=== PATIENT | male | born 1960 | race Caucasian/White ===

== ENCOUNTER 2019-04-16 10:31 | Outpatient (CLI) | payer OTHER ==
--- NOTE | 2019-04-16 12:22 | CT ---
CT ABDOMEN AND PELVIS WITH IV CONTRAST: INDICATIONS: Abdominal pain. Right lower quadrant pain. TECHNIQUE: Oral contrast was administered. Multiplanar reconstruction. FINDINGS: The lung bases are clear. The liver, spleen and pancreas are unremarkable. The adrenal glands are normal. Review of the kidneys show symmetric function. No hydronephrosis. There is a 4 mm nonobstructing calc ulus in the upper collecting structures of the right kidney. There is a tiny subcentimeter cystic les ion along the anterior cortex of the right kidney and another tiny low density cortical lesion at the posterior right renal cortex, too small to characterize. The ureters are of normal caliber. The urin carly bladder is mildly distended and unremarkable. Small bowel loops appear normal. There is evidence of mural thickening involving the upper right colon, transverse colon and left colo n. However the colon is nondistended which inhibits accurate colon wall evaluation. Recommend clinica l correlation regarding clinical findings of colitis. There is marked change in caliber in the mid as cending colon. Consider further evaluation with colonoscopy. Aorta of normal caliber. No mass, adenopathy or free fluid. Prostate size upper normal. IMPRESSION: Evidence of diffuse mural thickening of the colon, however, the colon is nondistended, which inhibits adequate evaluation. There is abrupt caliber change in the mid ascending colon. Consider colitis and recommend evaluation with elective colonoscopy. POS: [facility]
== END 2019-04-16 10:32 | disposition home or self-care (01) ==
LOC: SCSCT 10:31
PROVIDERS: ATTEND Nurse Practitioner Family
DX: R10.31 Right lower quadrant pain (principal)
CPT/HCPCS: 74177

== ENCOUNTER 2020-09-20 15:26 | Outpatient (CLI) | payer OTHER ==
[2020-09-21 04:20] LABS: SARS-CoV-2 PCR by NAA Not Detected (NotDetected)
== END 2020-09-20 15:27 | disposition home or self-care (01) ==
LOC: LABBT 15:26
PROVIDERS: ATTEND Surgery
DX: Z01.818 Encounter for other preprocedural examination (principal); Z20.822 Contact with and (suspected) exposure to COVID-19
CPT/HCPCS: 87635; 93005; 93010; U0003; U0005

== ENCOUNTER 2020-09-23 09:01 | Day surgery (SDC) | payer OTHER ==
[2020-09-22 09:31] VITALS: BMI 30.1
[2020-09-23] MEDS ORDERED: Midazolam HCl 2 mg/2 ml Vial ONE (09:54)
[2020-09-23] MEDS ORDERED: Bupivacaine PF 0.5% 30 ML VIAL ONE (10:18)
[2020-09-23] MEDS ORDERED: Lidocaine 1% w/Epinephrine 1:100K 20 ML VIAL ONE (10:18)
[2020-09-23] MEDS ORDERED: Fentanyl 100 MCG/2 ML VIAL ONE ×2 (10:24→12:18)
[2020-09-23] MEDS ORDERED: Famotidine/PF 20 mg/2ml Vial ONE (10:24)
[2020-09-23] MEDS ORDERED: PROPOFOL 200 MG/20 ML VIAL ONE (10:41)
[2020-09-23] MEDS ORDERED: Rocuronium Bromide 10 MG/ML (10ML VIAL) ONE (10:41)
[2020-09-23] MEDS ORDERED: Lidocaine 1% PF 5 ML VIAL ONE (10:41)
[2020-09-23] MEDS ORDERED: Glycopyrrolate 0.2 MG/ML 5 ML SYRINGE ONE (10:41)
[2020-09-23] MEDS ORDERED: Ondansetron PF 4 MG/2 ML Vial ONE (10:41)
[2020-09-23] MEDS ORDERED: Ketorolac Tromethamine 30 MG/ML VIAL ONE (10:41)
[2020-09-23] MEDS ORDERED: HYDROcodone/Acetaminophen 5/325 mg Tablet ONE ×2 (12:52→13:52)
== END 2020-09-23 14:30 | disposition home or self-care (01) ==
LOC: SDC 09:01
PROVIDERS: ATTEND Surgery
PROC: 0HB8XZZ Excision of Buttock Skin, External Approach (ICD-10-PCS; principal; 2020-09-23)
DX: L05.91 Pilonidal cyst without abscess (principal); E78.00 Pure hypercholesterolemia, unspecified; I10 Essential (primary) hypertension; J30.2 Other seasonal allergic rhinitis; Z79.82 Long term (current) use of aspirin; Z79.899 Other long term (current) drug therapy; Z01.818 Encounter for other preprocedural examination; Z20.822 Contact with and (suspected) exposure to COVID-19
CPT/HCPCS: 87635; 88304; 93005; 93010; J0690; J1885; J2250; J2405; J2704; J3010; S0020; S0028; U0003; U0005

== ENCOUNTER 2022-06-23 12:42 | Outpatient (CLI) | payer BC ==
[2022-06-23 13:15] LABS: Hemoglobin 16.2 g/dL (13.5-17.5); Mean Corpuscular HGB CONC 35.3 g/dL (32.0-36.0); Mean Corpuscular Hemoglobin 31.5 pg (27.0-33.0); Mean Corpuscular Volume 89.1 fl (81.2-95.1); Mean Platelet Volume 10.1 fl (7.4-10.4); Platelet Count 296 10x3/uL (150-450); RBC Distribution Width 12.2 % (11.5-14.5); Red Blood Cell (RBC) Count 5.15 10x6/uL (4.32-5.72); White Blood Cell (WBC) Count 6.6 10x3/uL (3.5-10.5)
[2022-06-23 13:51] LABS: Anion Gap 16 mmol/L (10-20); BUN (Urea Nitrogen) 11 mg/dL (8.4-25.7); Calc. Creatinine Clearance 0 mL/min (70-130); Carbon Dioxide 24 mmol/L (23-31); Chloride 105 mmol/L (98-107); Estimated GFR 87; Glucose 86 mg/dL (80-115); Potassium 4.4 mmol/L (3.5-5.1); Sodium 141 mmol/L (136-145)
[2022-06-23 13:53] LABS: PTT 29.6 sec (22.0-33.0); Prothrombin Time 10.8 sec (9.5-12.1)
== END 2022-06-23 12:43 | disposition home or self-care (01) ==
LOC: LABBT 12:42
PROVIDERS: ATTEND Internal Medicine Cardiovascular Disease
DX: Z01.812 Encounter for preprocedural laboratory examination (principal); I48.91 Unspecified atrial fibrillation
CPT/HCPCS: 80048; 85027; 85610; 85730

== ENCOUNTER 2022-06-28 08:31 | Day surgery (SDC) | payer BC ==
[2022-06-23 11:47] VITALS: BMI 30.1
[2022-06-28] MEDS ORDERED: Heparin 25,000 units/D5W 500 ML ONE (11:10)
[2022-06-28] MEDS ORDERED: Heparin 10,000 UNITS/ 10 ML VIAL ONE ×2 (11:10→13:58)
[2022-06-28] MEDS ORDERED: Protamine Sulfate 50 MG/5 ML VIAL ONE (11:10)
[2022-06-28] MEDS ORDERED: Fentanyl 100 MCG/2 ML VIAL ONE ×2 (11:13→18:46)
[2022-06-28] MEDS ORDERED: Midazolam HCl 2 mg/2 ml Vial ONE (11:35)
[2022-06-28] MEDS ORDERED: Dexamethasone 20 MG/5 ML VIAL ONE (11:44)
[2022-06-28] MEDS ORDERED: PHENYLEPHRINE-NS 100 MCG/ML 10 ML SYRINGE ONE (11:44)
[2022-06-28] MEDS ORDERED: Rocuronium Bromide 10 MG/ML (10ML VIAL) ONE (11:44)
[2022-06-28] MEDS ORDERED: Esmolol 100 MG/10 ML VIAL ONE (11:44)
[2022-06-28] MEDS ORDERED: PROPOFOL 200 MG/20 ML VIAL ONE (11:44)
[2022-06-28] MEDS ORDERED: Albuterol Sulfate HFA (OR ONLY) ONE (12:19)
[2022-06-28] MEDS ORDERED: Isoproterenol 0.2 MG/1 ML AMP ONE (12:20)
[2022-06-28] MEDS ORDERED: SUGAMMADEX SODIUM 200 MG/2 ML VIAL ONE (13:59)
[2022-06-28] MEDS ORDERED: Promethazine HCl 25 MG/ML VIAL IM PRN (15:16)
[2022-06-28] MEDS ORDERED: Ondansetron HCl/PF 4 MG/2 ML Vial IVP PRN (15:16)
[2022-06-28] MEDS ORDERED: Morphine Sulfate 2 MG/ML SYRINGE SLOW IVP PRN (15:16)
[2022-06-28] MEDS ORDERED: Promethazine HCl 25 MG/ML VIAL IVPB PRN (15:16)
[2022-06-28] MEDS ORDERED: HYDROmorphone 2 MG/ML VIAL SLOW IVP PRN (15:16)
[2022-06-28] MEDS ORDERED: Ketorolac Tromethamine 30 MG/ML VIAL ONE (17:17)
[2022-06-28] MEDS ORDERED: HYDROcodone/Acetaminophen 5/325 mg Tablet ONE (19:11)
== END 2022-06-28 19:50 | disposition home or self-care (01) ==
LOC: SDC 08:31
PROVIDERS: ATTEND Internal Medicine Cardiovascular Disease
PROC: 02K83ZZ Map Conduction Mechanism, Percutaneous Approach (ICD-10-PCS; principal; 2022-06-28)
PROC: 02583ZZ Destruction of Conduction Mechanism, Percutaneous Approach (ICD-10-PCS; principal; 2022-06-28)
PROC: B244ZZ3 Ultrasonography of Right Heart, Intravascular (ICD-10-PCS; principal; 2022-06-28)
PROC: 4A0234Z Measurement of Cardiac Electrical Activity, Percutaneous Approach (ICD-10-PCS; principal; 2022-06-28)
PROC: 4A023FZ Measurement of Cardiac Rhythm, Percutaneous Approach (ICD-10-PCS; principal; 2022-06-28)
DX: I48.0 Paroxysmal atrial fibrillation (principal); I25.10 Atherosclerotic heart disease of native coronary artery without angina pectoris; I25.2 Old myocardial infarction; I08.3 Combined rheumatic disorders of mitral, aortic and tricuspid valves; I47.20 Ventricular tachycardia, unspecified; E78.2 Mixed hyperlipidemia; I10 Essential (primary) hypertension; Z86.16 Personal history of COVID-19; Z79.01 Long term (current) use of anticoagulants; Z79.620 Long term (current) use of immunosuppressive biologic; Z79.899 Other long term (current) drug therapy
CPT/HCPCS: 85347; 93005; 93622; 93623; 93656; 93657; C1732; C1759; C1760; C1769; C1894; J1100; J1644; J1885; J2250; J2704; J2720; J3010

== ENCOUNTER 2023-02-06 15:13 | Outpatient (CLI) | payer BC | END 2023-02-06 15:14 | disposition home or self-care (01) | LOC: BICMAMMO 15:13 | PROVIDERS: ATTEND Nurse Practitioner Family | DX: Z13.820 Encounter for screening for osteoporosis (principal); M85.89 Other specified disorders of bone density and structure, multiple sites | CPT/HCPCS: 77080 ==